=== PATIENT | female | born 1980 | race Caucasian/White ===

== ENCOUNTER 2019-08-01 15:23 | Emergency (ER) | payer MEDICARE, OTHER ==
[2019-08-01 15:30] VITALS: RESP 18
--- NOTE | 2019-08-01 16:03 | ED ---
Female Urogenital HPI - General Chief complaint: Vaginal Bleeding Stated complaint: 7 WEEKS AND SPOTTING Time Seen by Provider: 08/01/19 15:31 Source: patient Mode of arrival: ambulatory Limitations: no limitations - History of Present Illness Initial comments: Patient is a 39-year-old female presenting to the emergency Department with complaints of vaginal spotting and lower abdominal cramping 2 days. Patient is 7 weeks . Patient is a . Patient has yet to see her OB. Patient states the spotting was minimal yesterday but then has increased and she is also noticing small clots. Patient is having small amount of lower abdominal cramping. Patient denies nausea, vomiting, fever, chills. Patient has no other complaints at this time. Upon arrival to ER, vital signs stable. Last Menstrual Period: 05/30/19 - Related Data Home Medications Medication Instructions Recorded Confirmed ARIPiprazole [Abilify] 1 tab PO DAILY 04/29/16 04/29/16 DULoxetine HCL [Cymbalta] 1 tab PO DAILY 04/29/16 04/29/16 Previous Rx's Medication Instructions Recorded Ibuprofen [Motrin] 800 mg PO Q6HR PRN #20 tab 04/29/16 Allergies Allergy/AdvReac Type Severity Reaction Status Date / Time No Known Allergies Allergy Verified 08/01/19 15:30 Review of Systems ROS Statement: Those systems with pertinent positive or pertinent negative responses have been documented in the HPI. ROS Other: All systems not noted in ROS Statement are negative. Past Medical History Past Medical History: No Reported History History of Any Multi-Drug Resistant Organisms: None Reported Past Surgical History: Cholecystectomy Additional Past Surgical History / Comment(s): gastric sleeve surgery Past Psychological History: Depression Smoking Status: Current every day smoker Past Alcohol Use History: None Reported Past Drug Use History: Marijuana General Exam - General Exam Comments Initial Comments: GENERAL: Well-appearing, well-nourished and in no acute distress. HEAD: Atraumatic, normocephalic. EYES: Pupils equal round and reactive to light, extraocular movements intact, sclera anicteric, conjunctiva are normal. ENT: TMs normal, nares patent, oropharynx clear without exudates. Moist mucous membranes. NECK: Normal range of motion, supple without lymphadenopathy or JVD. LUNGS: Breath sounds clear to auscultation bilaterally and equal. No wheezes rales or rhonchi. HEART: Regular rate and rhythm without murmurs, rubs or gallops. ABDOMEN: Soft, nontender, normoactive bowel sounds. No guarding, no rebound. No masses appreciated. : Deferred, declined at this time. EXTREMITIES: Normal range of motion, no pitting or edema. No clubbing or cyanosis. NEUROLOGICAL: Cranial nerves II through XII grossly intact. Normal speech, normal gait. PSYCH: Normal mood, normal affect. SKIN: Warm, Dry, normal turgor, no rashes or lesions noted. Limitations: no limitations Course Vital Signs 08/01/19 08/01/19 15:26 17:55 Temperature 97.9 F 97.6 F Pulse Rate 90 77 Respiratory 18 18 Rate Blood Pressure 109/70 112/65 O2 Sat by Pulse 98 98 Oximetry Medical Decision Making - Medical Decision Making Patient is a 39-year-old female presenting with vaginal spotting and mild lower abdominal cramping since yesterday. Patient states she also notices a few small clots in her blood. Upon arrival to ER, vital signs are stable. Patient's exam is unremarkable. Patient declined vaginal exam at this time. CBC shows white count of 12, rest of CBC is normal. CMP is normal hCG Quant is 3200. UA shows no signs of infection. Ultrasound shows a 6mm intrauterine fetus without movement or cardiac activity consistent with demise at approximately 6 weeks 3 days gestation. These findings were discussed with the patient. It was discussed with patient that she may experience an increase in abdominal cramping and vaginal discharge. Patient is stable for discharge at this time. Patient was given [facility]ER follow-up as needed. Return parameters were discussed with the patient she verbalized understanding. Case discussed with Dr. Smith. - Lab Data Result diagrams: 08/01/19 16:06 08/01/19 16:06 Lab Results 08/01/19 08/01/19 08/01/19 Range/Units 16:06 16:06 16:06 WBC 12.0 H (3.8-10.6) k/uL RBC 4.15 (3.80-5.40) m/uL Hgb 13.3 (11.4-16.0) gm/dL Hct 38.7 (34.0-46.0) % MCV 93.1 (80.0-100.0) fL MCH 32.0 (25.0-35.0) pg MCHC 34.4 (31.0-37.0) g/dL RDW 12.9 (11.5-15.5) % Plt Count 249 (150-450) k/uL Neutrophils % 62 % Lymphocytes % 30 % Monocytes % 4 % Eosinophils % 2 % Basophils % 1 % Neutrophils # 7.4 (1.3-7.7) k/uL Lymphocytes # 3.6 (1.0-4.8) k/uL Monocytes # 0.5 (0-1.0) k/uL Eosinophils # 0.3 (0-0.7) k/uL Basophils # 0.1 (0-0.2) k/uL Sodium 140 (137-145) mmol/L Potassium 3.7 (3.5-5.1) mmol/L Chloride 108 H (98-107) mmol/L Carbon Dioxide 23 (22-30) mmol/L Anion Gap 9 mmol/L BUN 13 (7-17) mg/dL Creatinine 0.61 (0.52-1.04) mg/dL Est GFR (CKD-EPI)AfAm >90 (>60 ml/min/1.73 sqM) Est GFR (CKD-EPI)NonAf >90 (>60 ml/min/1.73 sqM) Glucose 74 (74-99) mg/dL Calcium 9.1 (8.4-10.2) mg/dL Total Bilirubin 0.3 (0.2-1.3) mg/dL AST 20 (14-36) U/L ALT 14 (9-52) U/L Alkaline Phosphatase 60 (38-126) U/L Total Protein 6.8 (6.3-8.2) g/dL Albumin 4.0 (3.5-5.0) g/dL HCG, Quant 3289.9 mIU/mL Urine Color Urine Appearance (Clear) Urine pH (5.0-8.0) Ur Specific [place] (1.001-1.035) Urine Protein (Negative) Urine Glucose (UA) (Negative) Urine Ketones (Negative) Urine Blood (Negative) Urine Nitrite (Negative) Urine Bilirubin (Negative) Urine Urobilinogen (<2.0) mg/dL Ur Leukocyte Esterase (Negative) Urine RBC (0-5) /hpf Urine WBC (0-5) /hpf Ur Squamous Epith Cells (0-4) /hpf Urine Mucus (None) /hpf Blood Type AB Positive Blood Type Recheck No Previous Record Bld Type Recheck Status [facility] ONLY 08/01/19 Range/Units 16:06 WBC (3.8-10.6) k/uL RBC (3.80-5.40) m/uL Hgb (11.4-16.0) gm/dL Hct (34.0-46.0) % MCV (80.0-100.0) fL MCH (25.0-35.0) pg MCHC (31.0-37.0) g/dL RDW (11.5-15.5) % Plt Count (150-450) k/uL Neutrophils % % Lymphocytes % % Monocytes % % Eosinophils % % Basophils % % Neutrophils # (1.3-7.7) k/uL Lymphocytes # (1.0-4.8) k/uL Monocytes # (0-1.0) k/uL Eosinophils # (0-0.7) k/uL Basophils # (0-0.2) k/uL Sodium (137-145) mmol/L Potassium (3.5-5.1) mmol/L Chloride (98-107) mmol/L Carbon Dioxide (22-30) mmol/L Anion Gap mmol/L BUN (7-17) mg/dL Creatinine (0.52-1.04) mg/dL Est GFR (CKD-EPI)AfAm (>60 ml/min/1.73 sqM) Est GFR (CKD-EPI)NonAf (>60 ml/min/1.73 sqM) Glucose (74-99) mg/dL Calcium (8.4-10.2) mg/dL Total Bilirubin (0.2-1.3) mg/dL AST (14-36) U/L ALT (9-52) U/L Alkaline Phosphatase (38-126) U/L Total Protein (6.3-8.2) g/dL Albumin (3.5-5.0) g/dL HCG, Quant mIU/mL Urine Color Yellow Urine Appearance Clear (Clear) Urine pH 6.0 (5.0-8.0) Ur Specific [place] 1.030 (1.001-1.035) Urine Protein Trace H (Negative) Urine Glucose (UA) Negative (Negative) Urine Ketones Negative (Negative) Urine Blood Small H (Negative) Urine Nitrite Negative (Negative) Urine Bilirubin Negative (Negative) Urine Urobilinogen 2.0 (<2.0) mg/dL Ur Leukocyte Esterase Negative (Negative) Urine RBC 3 (0-5) /hpf Urine WBC 1 (0-5) /hpf Ur Squamous Epith Cells 4 (0-4) /hpf Urine Mucus Rare H (None) /hpf Blood Type Blood Type Recheck Bld Type Recheck Status Disposition Clinical Impression: Incomplete miscarriage, Vaginal bleeding Disposition: HOME SELF-CARE Condition: Stable Instructions (If sedation given, give patient instructions): Miscarriage (ED) Additional Instructions: Please return to the Emergency Department if symptoms worsen or any other concerns. Follow-up with [facility] as needed. Is patient prescribed a controlled substance at d/c from ED?: No Referrals: Zari Yarbrough MD [Primary Care Provider] - 1-2 days Laurence Mo DO [Doctor of Osteopathic Medicine] - 1-2 days
[2019-08-01 16:32] LABS: Basophils # (A) 0.1 k/uL (0-0.2); Basophils % (A) 1 %; Eosinophils # (A) 0.3 k/uL (0-0.7); Eosinophils % (A) 2 %; HCT 38.7 % (34.0-46.0); HGB 13.3 gm/dL (11.4-16.0); Lymphocytes # (A) 3.6 k/uL (1.0-4.8); Lymphocytes % (A) 30 %; MCHC 34.4 g/dL (31.0-37.0); MCV 93.1 fL (80.0-100.0); Monocytes # (A) 0.5 k/uL (0-1.0); Monocytes % (A) 4 %; Neutrophils # (A) 7.4 k/uL (1.3-7.7); Neutrophils % (A) 62 %; Platelet Count 249 k/uL (150-450); RBC 4.15 m/uL (3.80-5.40); RDW 12.9 % (11.5-15.5)
[2019-08-01 16:49] LABS: ALT 14 U/L (9-52); AST 20 U/L (14-36); African American GFR (CKD) >90 (>60 ml/min/1.73 sqM); Alkaline Phosphatase 60 U/L (38-126); Anion Gap 9 mmol/L; Appearance,Urine Clear (Clear); Bilirubin,Urine Negative (Negative); Blood Urea Nitrogen 13 mg/dL (7-17); Blood,Urine Small (Negative); Calcium 9.1 mg/dL (8.4-10.2); Carbon Dioxide 23 mmol/L (22-30); Chloride 108 mmol/L (98-107); Color,Urine Yellow; Glucose 74 mg/dL (74-99); Glucose,Urine (UA) Negative (Negative); Ketones,Urine Negative (Negative); Leukocyte Esterase,Urine Negative (Negative); Mucus,Urine Rare /hpf; Nitrite,Urine Negative (Negative); Potassium 3.7 mmol/L (3.5-5.1); Protein,Urine Trace (Negative); RBC,Urine 3 /hpf (0-5); Sodium 140 mmol/L (137-145); Squamous Epithelial Cell,Urine 4 /hpf (0-4); Total Bilirubin 0.3 mg/dL (0.2-1.3); Total Protein 6.8 g/dL (6.3-8.2)
[2019-08-01 17:05] LABS: HCG,Quantitative Serum 3289.9 mIU/mL
--- NOTE | 2019-08-01 17:16 | US ---
EXAMINATION TYPE: Transabdominal DATE OF EXAM: 08/01/2019 5:08 PM COMPARISON: NONE CLINICAL HISTORY: Pain. Pt states vaginal bleeding with small clots EXAM PERFORMED: TA and TV EXAM MEASUREMENTS: GESTATIONAL AGE / DATING Physician Established: Not yet established Dates by LMP: (9 weeks/0 days) EDC: 03/05/2020 Dates by First Scan: No prior Dates by Current Scan for: (6 weeks/2 days) EDC: 03/24/2020 MATERNAL ANATOMY Uterus: 8.5 x 5.2 x 6.4 cm Right Ovary: 2.6 x 1.7 x 2.5 cm Left Ovary: 3.5 x 2.3 x 1.9 cm Post CDS / Adnexa: wnl Presence of free fluid: No Presence of corpus luteal cyst: Left Ovary= 2.1 x 1.8 1.7 cm Presence of subchorionic bleed: No GESTATION / SURVEY CRL: 0.6 cm (6 weeks/2 days) MSD: Debris within gestational sac Yolk Sac (normal less than 6mm): 5mm IUP: Demise Probable demise, cardiac activity not detected with color or pulsed doppler/ debris within ge stational sac IMPRESSION: 6 mm intrauterine fetus without movement or cardiac activity consistent with demise at approxim ately 6 weeks 3 days gestation.
[2019-08-01 18:02] VITALS: BP 112/65; PULSE 77; TEMP 97.6
== END 2019-08-01 17:55 | disposition home or self-care (01) ==
LOC: EC 15:23
DX: O03.4 Incomplete spontaneous abortion without complication (principal); O99.341 Other mental disorders complicating pregnancy, first trimester; F32.9 Major depressive disorder, single episode, unspecified; O99.331 Smoking (tobacco) complicating pregnancy, first trimester; F17.200 Nicotine dependence, unspecified, uncomplicated; Z79.899 Other long term (current) drug therapy; Z90.49 Acquired absence of other specified parts of digestive tract; Z98.84 Bariatric surgery status; Z3A.01 Less than 8 weeks gestation of pregnancy; Z53.20 Procedure and treatment not carried out because of patient's decision for unspecified reasons
CPT/HCPCS: 36415; 76801; 76817; 80053; 81001; 84702; 85025; 86900; 86901; 99284

== ENCOUNTER → 2019-10-04 | Outpatient (CLI) | payer MEDICARE, OTHER ==
--- NOTE | 2019-10-05 07:23 | CT ---
EXAMINATION TYPE: CT facial bones wo con DATE OF EXAM: 10/04/2019 COMPARISON: None HISTORY: LUMP TO RIGHT SIDE NASAL AREA X2 MONTHS CT DLP: 575.3 mGycm Automated exposure control for dose reduction was used. TECHNIQUE: CT scan of the sinuses is performed without contrast, axial images are obtained, coronal r eformatted images are also reviewed. FINDINGS: There is no CT correlate for the patient's palpable right nasal abnormality. No discrete solid or cys tic masses seen given the limitation of lack of intravenous contrast. Orbits are symmetric and lenses are in place. Extraocular muscles are unremarkable. Circumferential mild mucosal thickening of the i nferior left maxillary sinus. The remaining paranasal sinuses are well aerated as are the visualized portions of the mastoid air cells. Small lisa bullosa is seen on the left. There is a very mild rig htward nasal septal deviation of the anterior portion of the nasal septum. Ostiomeatal complexes are slightly narrowed by mucosal thickening but patent. Visualized portions of brain display mild frontal atrophy but are suboptimally viewed given htzyl-hy-nsyc and technique. IMPRESSION: 1. No CT correlate to the patient's right nasal palpable abnormality. 2. Mild left maxillary mucosal thickening. 3. Slight rightward nasal deviation of the anterior aspect of the nasal septum and small nonobstructi ng left lisa bullosa. 4. Minimal narrowing without obstruction of the ostiomeatal complexes.
== END | disposition home or self-care (01) ==
LOC: RADCTMAIN 16:46
PROVIDERS: ATTEND Family Medicine
DX: J34.89 Other specified disorders of nose and nasal sinuses (principal); J34.2 Deviated nasal septum
CPT/HCPCS: 70486

== ENCOUNTER 2021-05-16 13:36 | Emergency (ER) | payer MEDICARE, OTHER ==
[2021-05-16 14:16] VITALS: TEMP 98
[2021-05-16] MEDS ORDERED: LABETALOL 5 MG/ML VIAL MDV IVP STA (14:43)
[2021-05-16 14:50] LABS: Appearance,Urine Clear (Clear); Bilirubin,Urine Negative (Negative); Blood,Urine Negative (Negative); Color,Urine Yellow; Glucose,Urine (UA) Negative (Negative); Ketones,Urine 1+ (Negative); Leukocyte Esterase,Urine Negative (Negative); Nitrite,Urine Negative (Negative); PH, Urine 6.5 (5.0-8.0); Protein,Urine Trace (Negative); Specific Gravity,Urine 1.017 (1.001-1.035); Urobilinogen,Urine <2.0 mg/dL (<2.0)
[2021-05-16 14:51] LABS: Basophils # (A) 0.1 k/uL (0-0.2); Basophils % (A) 0 %; Eosinophils # (A) 0.4 k/uL (0-0.7); Eosinophils % (A) 3 %; HCT 37.7 % (34.0-46.0); HGB 12.2 gm/dL (11.4-16.0); Lymphocytes # (A) 2.9 k/uL (1.0-4.8); Lymphocytes % (A) 22 %; MCH 28.8 pg (25.0-35.0); MCHC 32.5 g/dL (31.0-37.0); MCV 88.7 fL (80.0-100.0); Mean Platelet Volume 7.4; Monocytes # (A) 0.4 k/uL (0-1.0); Monocytes % (A) 3 %; Neutrophils # (A) 9.1 k/uL (1.3-7.7); Neutrophils % (A) 70 %; Platelet Count 355 k/uL (150-450); RBC 4.25 m/uL (3.80-5.40); RDW 14.8 % (11.5-15.5); WBC 13.1 k/uL (3.8-10.6)
[2021-05-16 15:06] VITALS: RESP 20
[2021-05-16 15:12] LABS: ALT 17 U/L (4-34); AST 31 U/L (14-36); African American GFR (CKD) >90 (>60 ml/min/1.73 sqM); Albumin 3.2 g/dL (3.5-5.0); Alkaline Phosphatase 163 U/L (38-126); Anion Gap 7 mmol/L; Blood Urea Nitrogen 8 mg/dL (7-17); Calcium 8.9 mg/dL (8.4-10.2); Carbon Dioxide 25 mmol/L (22-30); Chloride 105 mmol/L (98-107); Glucose 87 mg/dL (74-99); LDH 548 U/L (313-618); Magnesium 1.7 mg/dL (1.6-2.3); Non-African American GFR(CKD) >90 (>60 ml/min/1.73 sqM); Potassium 3.9 mmol/L (3.5-5.1); Sodium 137 mmol/L (137-145); Total Bilirubin 0.4 mg/dL (0.2-1.3); Total Protein 6.3 g/dL (6.3-8.2); Uric Acid 5.1 mg/dL (3.7-7.4)
[2021-05-16] MEDS ORDERED: ACETAMINOPHEN TAB 500 MG TAB PO STA (15:16)
--- NOTE | 2021-05-16 15:27 | ED ---
General Adult HPI - General Chief complaint: Extremity Problem,Nontraumatic Stated complaint: post Csection leg swelling Time Seen by Provider: 05/16/21 14:10 Source: patient, RN notes reviewed, old records reviewed Mode of arrival: ambulatory Limitations: no limitations - History of Present Illness Initial comments: This is a 40-year-old female presents emergency Department 4 days . Patient had a at [facility]. Patient states yesterday she started noticing significant swelling to both of her legs as well as a headache. Patient states she was on labetalol during her but after green party C she has not taken it because she thought she didn't need anymore. Patient denies any visual disturbance. Patient denies any numbness weakness. Patient denies any chest pain or difficulty breathing shortness of breath per patient denies any abdominal pain. Patient denies any fever chills. - Related Data Home Medications Medication Instructions Recorded Confirmed ARIPiprazole [Abilify] 1 tab PO DAILY 04/29/16 04/29/16 DULoxetine HCL [Cymbalta] 1 tab PO DAILY 04/29/16 04/29/16 Previous Rx's Medication Instructions Recorded Ibuprofen [Motrin] 800 mg PO Q6HR PRN #20 tab 04/29/16 Labetalol [Trandate] 100 mg PO BID #30 tablet 05/16/21 Allergies Allergy/AdvReac Type Severity Reaction Status Date / Time No Known Allergies Allergy Verified 05/16/21 16:19 Review of Systems ROS Statement: Those systems with pertinent positive or pertinent negative responses have been documented in the HPI. ROS Other: All systems not noted in ROS Statement are negative. Past Medical History Past Medical History: Hypertension History of Any Multi-Drug Resistant Organisms: None Reported Past Surgical History: Bariatric Surgery, Section, Cholecystectomy Additional Past Surgical History / Comment(s): gastric sleeve surgery Past Psychological History: Depression Smoking Status: Current every day smoker Past Alcohol Use History: None Reported Past Drug Use History: Marijuana General Exam - General Exam Comments Initial Comments: GENERAL: Patient is well-developed and well-nourished. Patient is nontoxic and well- hydrated and is in mild distress. ENT: Neck is soft and supple. No significant lymphadenopathy is noted. Oropharynx is clear. Moist mucous membranes. Neck has full range of motion without eliciting any pain. EYES: The sclera were anicteric and conjunctiva were pink and moist. Extraocular movements were intact and pupils were equal round and reactive to light. Eyelids were unremarkable. PULMONARY: Unlabored respirations. Good breath sounds bilaterally. No audible rales rhonchi or wheezing was noted. CARDIOVASCULAR: There is a regular rate and rhythm without any murmurs gallops or rubs. ABDOMEN: Soft and nontender with normal bowel sounds. SKIN: Skin is clear with no lesions or rashes and otherwise unremarkable. NEUROLOGIC: Patient is alert and oriented x3. Cranial nerves II through XII are grossly intact. Motor and sensory are also intact. Normal speech, volume and content. Symmetrical smile. MUSCULOSKELETAL: Normal extremities with adequate strength and full range of motion. 2+ edema bilaterally LYMPHATICS: No significant lymphadenopathy is noted PSYCHIATRIC: Normal psychiatric evaluation. Limitations: no limitations Course Vital Signs 05/16/21 05/16/21 05/16/21 14:09 15:05 16:00 Temperature 98.0 F Pulse Rate 104 H 87 89 Respiratory 22 20 20 Rate Blood Pressure 158/94 127/89 138/91 O2 Sat by Pulse 97 95 95 Oximetry Medical Decision Making - Medical Decision Making EKG shows sinus tachycardia 105 bpm TN interval is 134 QRS is 84 Q-T intervals 324 QTC is 428. Patient's EKG shows no ST segment elevation or depression. I spoke with Dr. Garzon about this patient before and after labetalol was given she was comfortable at this point time of discharge patient home on labetalol. I spoke with Dr. Fairbanks and she did not want to give any input because she did not have privileges at this hospital even though this was her patient. - Lab Data Result diagrams: 05/16/21 14:31 05/16/21 14:31 Lab Results 05/16/21 05/16/21 05/16/21 Range/Units 14:31 14:31 14:31 WBC 13.1 H (3.8-10.6) k/uL RBC 4.25 (3.80-5.40) m/uL Hgb 12.2 (11.4-16.0) gm/dL Hct 37.7 (34.0-46.0) % MCV 88.7 (80.0-100.0) fL MCH 28.8 (25.0-35.0) pg MCHC 32.5 (31.0-37.0) g/dL RDW 14.8 (11.5-15.5) % Plt Count 355 (150-450) k/uL MPV 7.4 Neutrophils % 70 % Lymphocytes % 22 % Monocytes % 3 % Eosinophils % 3 % Basophils % 0 % Neutrophils # 9.1 H (1.3-7.7) k/uL Lymphocytes # 2.9 (1.0-4.8) k/uL Monocytes # 0.4 (0-1.0) k/uL Eosinophils # 0.4 (0-0.7) k/uL Basophils # 0.1 (0-0.2) k/uL Sodium 137 (137-145) mmol/L Potassium 3.9 (3.5-5.1) mmol/L Chloride 105 (98-107) mmol/L Carbon Dioxide 25 (22-30) mmol/L Anion Gap 7 mmol/L BUN 8 (7-17) mg/dL Creatinine 0.58 (0.52-1.04) mg/dL Est GFR (CKD-EPI)AfAm >90 (>60 ml/min/1.73 sqM) Est GFR (CKD-EPI)NonAf >90 (>60 ml/min/1.73 sqM) Glucose 87 (74-99) mg/dL Uric Acid 5.1 (3.7-7.4) mg/dL Calcium 8.9 (8.4-10.2) mg/dL Magnesium 1.7 (1.6-2.3) mg/dL Total Bilirubin 0.4 (0.2-1.3) mg/dL AST 31 (14-36) U/L ALT 17 (4-34) U/L Alkaline Phosphatase 163 H (38-126) U/L Lactate Dehydrogenase 548 (313-618) U/L Total Protein 6.3 (6.3-8.2) g/dL Albumin 3.2 L (3.5-5.0) g/dL Urine Color Yellow Urine Appearance Clear (Clear) Urine pH 6.5 (5.0-8.0) Ur Specific [place] 1.017 (1.001-1.035) Urine Protein Trace H (Negative) Urine Glucose (UA) Negative (Negative) Urine Ketones 1+ H (Negative) Urine Blood Negative (Negative) Urine Nitrite Negative (Negative) Urine Bilirubin Negative (Negative) Urine Urobilinogen <2.0 (<2.0) mg/dL Ur Leukocyte Esterase Negative (Negative) Disposition Clinical Impression: Gestational hypertension Disposition: HOME SELF-CARE Condition: Good Instructions (If sedation given, give patient instructions): Preeclampsia During (ED) Prescriptions: Labetalol [Trandate] 100 mg PO BID #30 tablet Is patient prescribed a controlled substance at d/c from ED?: No Referrals: Yadira Fairbanks MD [STAFF PHYSICIAN] - 1-2 days Time of Disposition: 16:37
[2021-05-16 16:16] VITALS: BP 138/91; PULSE 89
== END 2021-05-16 16:42 | disposition home or self-care (01) ==
LOC: EC 13:36
DX: O13.5 Gestational [pregnancy-induced] hypertension without significant proteinuria, complicating the puerperium (principal); O99.335 Smoking (tobacco) complicating the puerperium; F17.200 Nicotine dependence, unspecified, uncomplicated
CPT/HCPCS: 36415; 80053; 81003; 83615; 83735; 84550; 85025; 93005; 96374; 99284

== ENCOUNTER 2022-03-07 17:39 | Emergency (ER) | payer MEDICARE, OTHER ==
[2022-03-07 17:57] VITALS: TEMP 98.5
[2022-03-07] MEDS ORDERED: SODIUM CHLORIDE 0.9% 1,000 ML IV STA (18:24)
[2022-03-07] MEDS ORDERED: MORPHINE SULFATE 4 MG/ML SYRINGE IV STA (18:24)
[2022-03-07] MEDS ORDERED: ASPIRIN 81 MG PO STA (18:24)
[2022-03-07] MEDS ORDERED: KETOROLAC 15 MG/ML 1 ML VIAL IVP STA (18:24)
[2022-03-07] MEDS ORDERED: methylPREDNISolone SOD SUCCI 125 MG/2 ML VIAL IV STA (18:32)
[2022-03-07] MEDS ORDERED: IPRATROPIUM-ALBUTEROL 3 ML NEB INHALATION STA (18:32)
--- NOTE | 2022-03-07 18:37 | ED ---
General Adult HPI - General Chief complaint: Chest Pain Stated complaint: Chest pain Time Seen by Provider: 03/07/22 18:08 Source: patient, RN notes reviewed, old records reviewed Mode of arrival: wheelchair Limitations: no limitations - History of Present Illness Initial comments: Patient is a 41-year-old female with past medical history remarkable for tobacco use, hypertension and presents emergency Department complaining of a three-day history of atypical chest pain. Discussed the pain as a belt like an distribution starting near her sternum and radiating around 1 of her mid ribs to the right side. Denies any trauma. States it is pleuritic. Describes it as sharp and achy. Denies any fevers but does endorse a mild cough. Denies any nausea, vomiting, diarrhea. His no other acute complaints at this time. Has no known sick contacts. SHe was not vaccinated for Covid. No known history of blood clots. Denies any lower extremity edema. Denies any recent long distance travel. States she is always tachycardic, and the low 100s from 100-110. Denies any recent increase in amount of caffeinated beverage use. - Related Data Home Medications Medication Instructions Recorded Confirmed No Known Home Medications 03/07/22 03/07/22 Allergies Allergy/AdvReac Type Severity Reaction Status Date / Time No Known Allergies Allergy Verified 03/07/22 17:57 Review of Systems ROS Statement: Those systems with pertinent positive or pertinent negative responses have been documented in the HPI. Review of Systems: CONST: Denies fever EYES: Denies blurry vision ENT: Denies nasal congestion C/V: Endorses chest pain RESP: Denies shortness of breath GI: Denies abdominal pain : Denies dysuria SKIN: Denies rash. MSK: Denies joint pain. NEURO: Denies headache ROS Other: All systems not noted in ROS Statement are negative. Past Medical History Past Medical History: Hypertension History of Any Multi-Drug Resistant Organisms: None Reported Past Surgical History: Bariatric Surgery, Section, Cholecystectomy Additional Past Surgical History / Comment(s): gastric sleeve surgery Past Psychological History: Depression Smoking Status: Current every day smoker Past Alcohol Use History: None Reported Past Drug Use History: Marijuana General Exam - General Exam Comments Initial Comments: General: Appears in no acute distress. HEAD: Normal with no signs of head trauma. EYES: PERRLA, EOMI, conjunctiva normal, no discharge. ENT: Hearing grossly intact, normal oropharynx. RESPIRATORY: No hypoxia. No increased work of breathing. Bilateral end expiratory wheezing that is mild. C/V: Tachycardic with a regular rhythm. S1 and S2 auscultated, no edema, peripheral pulses 2+ and intact throughout. Chest pain appears to be reproducible on palpation as well as with movement of her trunk. ABD: Abd is soft, nontender, nondistended. No guarding. No rebound tenderness. No peritoneal signs. EXT: Normal range of motion, no obvious deformity SKIN: No rashes or lesions observed on exposed skin. NEURO: Alert and oriented 4. Limitations: no limitations Course Vital Signs 03/07/22 03/07/22 03/07/22 17:54 19:15 19:25 Temperature 98.5 F Pulse Rate 116 H 86 90 Respiratory 20 Rate Blood Pressure 131/80 O2 Sat by Pulse 100 Oximetry 03/07/22 03/07/22 19:26 21:26 Temperature Pulse Rate 84 74 Respiratory 18 18 Rate Blood Pressure 136/91 141/87 O2 Sat by Pulse 100 100 Oximetry Medical Decision Making - Medical Decision Making Based on the patient's presentation and physical exam, I'm concerned for acute cardiopulmonary etiology for her current symptoms for cannot rule out infectious etiology. Therefore we will obtain cardiac labs, d-dimer, as well as flu and Covid swab. She appears to be having a mild COPD exacerbation as well and will be given steroids and a breathing treatment. Patient was in agreement this plan. She is having atypical chest pain. She'll receive an aspirin. EKG showed no signs of acute ischemia.Patient's chest x-ray shows no acute cardiopulmonary process. Laboratory studies are remarkable for a rate slightly elevated leukocytosis of 14.8 which is likely reactive secondary to nausea and vomiting. D-dimer is elevated to 1.75. Patient also has a mildly elevated total bilirubin of 3.5, as well as elevated LFTs and alk phos. Troponin is indeterminate. Remainder the labs are unremarkable. Covid influenza negative. I did discuss with the patient results of her labs. She has a history of cholecystectomy, and declines any upper abdominal pain. On reevaluation at this time, her chest pain is completely resolved. She is been tolerating oral intake. I did discuss with her that I would like to obtain collateral ultrasound to ensure there is no retained stone, despite her having her gallbladder removed multiple years ago. Chest is a history gastric bypass surgery. She denies having any abdominal pain at this time. We will obtain a CT angiogram of the chest to evaluate for possible pulmonary embolism as well. She was in agreement this plan. CT PE showed no signs of PE. Right upper quadrant ultrasound revealed at a cellular disease, possible hepatic steatosis but no other acute findings. On reevaluation, patient remains stable. Remains asymptomatic. Vital signs are within normal limits. Did discuss with her at length the results of her labs. Could be a reactive process or possible chronic hepatic disease. We do not have gastroenterology here in the hospital for at least 2 weeks. She would require evaluation by them or by her home surgeon. She would like to go home. She is asymptomatic. I believe this is reasonable, she has been dealing with these symptoms for the last 2 days but she is feeling improved at this point. I did advise her that she should follow-up with her home surgeon, and she was in agreement with this plan. She understands that we do not have gastroenterology here for evaluation and that she should follow up with her surgeon on outpatient basis. She would like to go home. Patient will be discharged home at this time. I instructed the patient to follow up with their PCP in the next 3 days. I explained that the patient should return to the emergency department if they experience any worsening symptoms. Strict return precautions were discussed with the patient. The patient expressed understanding of these instructions. I answered all questions that the patient had. The patient was discharged home in good condition with their prescriptions and follow up information. - Lab Data Result diagrams: 03/07/22 18:34 03/07/22 18:34 Lab Results 03/07/22 03/07/22 03/07/22 Range/Units 18:34 18:34 18:34 WBC 14.8 H (3.8-10.6) k/uL RBC 5.02 (3.80-5.40) m/uL Hgb 14.8 (11.4-16.0) gm/dL Hct 44.8 (34.0-46.0) % MCV 89.2 (80.0-100.0) fL MCH 29.6 (25.0-35.0) pg MCHC 33.2 (31.0-37.0) g/dL RDW 14.6 (11.5-15.5) % Plt Count 307 (150-450) k/uL MPV 7.6 Neutrophils % 72 % Lymphocytes % 17 % Monocytes % 5 % Eosinophils % 5 % Basophils % 1 % Neutrophils # 10.7 H (1.3-7.7) k/uL Lymphocytes # 2.6 (1.0-4.8) k/uL Monocytes # 0.7 (0-1.0) k/uL Eosinophils # 0.7 (0-0.7) k/uL Basophils # 0.1 (0-0.2) k/uL PT 9.7 (9.0-12.0) sec INR 0.9 (<1.2) APTT 24.3 (22.0-30.0) sec D-Dimer 1.75 H (<0.60) mg/L FEU Sodium 138 (137-145) mmol/L Potassium 3.9 (3.5-5.1) mmol/L Chloride 106 (98-107) mmol/L Carbon Dioxide 24 (22-30) mmol/L Anion Gap 8 mmol/L BUN 13 (7-17) mg/dL Creatinine 0.64 (0.52-1.04) mg/dL Est GFR (CKD-EPI)AfAm >90 (>60 ml/min/1.73 sqM) Est GFR (CKD-EPI)NonAf >90 (>60 ml/min/1.73 sqM) Glucose 134 H (74-99) mg/dL Calcium 9.1 (8.4-10.2) mg/dL Magnesium 2.0 (1.6-2.3) mg/dL Total Bilirubin 3.5 H (0.2-1.3) mg/dL AST 467 H (14-36) U/L ALT 687 H (4-34) U/L Alkaline Phosphatase 466 H (38-126) U/L Troponin I (0.000-0.034) ng/mL Total Protein 7.5 (6.3-8.2) g/dL Albumin 4.1 (3.5-5.0) g/dL Coronavirus (PCR) (Not Detectd) Influenza Type A RNA (Not Detectd) Influenza Type B (PCR) (Not Detectd) 03/07/22 03/07/22 03/07/22 Range/Units 18:34 18:34 18:34 WBC (3.8-10.6) k/uL RBC (3.80-5.40) m/uL Hgb (11.4-16.0) gm/dL Hct (34.0-46.0) % MCV (80.0-100.0) fL MCH (25.0-35.0) pg MCHC (31.0-37.0) g/dL RDW (11.5-15.5) % Plt Count (150-450) k/uL MPV Neutrophils % % Lymphocytes % % Monocytes % % Eosinophils % % Basophils % % Neutrophils # (1.3-7.7) k/uL Lymphocytes # (1.0-4.8) k/uL Monocytes # (0-1.0) k/uL Eosinophils # (0-0.7) k/uL Basophils # (0-0.2) k/uL PT (9.0-12.0) sec INR (<1.2) APTT (22.0-30.0) sec D-Dimer (<0.60) mg/L FEU Sodium (137-145) mmol/L Potassium (3.5-5.1) mmol/L Chloride (98-107) mmol/L Carbon Dioxide (22-30) mmol/L Anion Gap mmol/L BUN (7-17) mg/dL Creatinine (0.52-1.04) mg/dL Est GFR (CKD-EPI)AfAm (>60 ml/min/1.73 sqM) Est GFR (CKD-EPI)NonAf (>60 ml/min/1.73 sqM) Glucose (74-99) mg/dL Calcium (8.4-10.2) mg/dL Magnesium (1.6-2.3) mg/dL Total Bilirubin (0.2-1.3) mg/dL AST (14-36) U/L ALT (4-34) U/L Alkaline Phosphatase (38-126) U/L Troponin I 0.019 (0.000-0.034) ng/mL Total Protein (6.3-8.2) g/dL Albumin (3.5-5.0) g/dL Coronavirus (PCR) Not Detected (Not Detectd) Influenza Type A RNA Not Detected (Not Detectd) Influenza Type B (PCR) Not Detected (Not Detectd) - EKG Data -: EKG Interpreted by Me EKG Comments: 12-lead Electrocardiogram Interpretation Note EKG was reviewed and interpreted by myself. 12-lead ECG performed at 1807 is i nterpreted by me as revealing normal sinus rhythm at a rate of 96 beats per minute. [place] is normal. NC interval is 143 ms, QRS duration is 87 ms, QTc is 381 ms.. There were no ST or T wave abnormalities to suggest myocardial ischemia or injury. R wave progression across the precordium was satisfactory. By my interpretation this EKG is non-diagnostic for acute ischemia. Disposition Clinical Impression: Musculoskeletal pain, Atypical chest pain, Hepatic steatosis Disposition: HOME SELF-CARE Condition: Good Instructions (If sedation given, give patient instructions): Chest Pain (ED) Is patient prescribed a controlled substance at d/c from ED?: No Referrals: Zari Yarbrough MD [Primary Care Provider] - 1-2 days
[2022-03-07 19:01] LABS: ALT 687 U/L (4-34); AST 467 U/L (14-36); African American GFR (CKD) >90 (>60 ml/min/1.73 sqM); Albumin 4.1 g/dL (3.5-5.0); Alkaline Phosphatase 466 U/L (38-126); Anion Gap 8 mmol/L; Blood Urea Nitrogen 13 mg/dL (7-17); Calcium 9.1 mg/dL (8.4-10.2); Carbon Dioxide 24 mmol/L (22-30); Chloride 106 mmol/L (98-107); Glucose 134 mg/dL (74-99); Non-African American GFR(CKD) >90 (>60 ml/min/1.73 sqM); Potassium 3.9 mmol/L (3.5-5.1); Sodium 138 mmol/L (137-145); Total Bilirubin 3.5 mg/dL (0.2-1.3); Total Protein 7.5 g/dL (6.3-8.2)
[2022-03-07 19:04] LABS: Basophils # (A) 0.1 k/uL (0-0.2); Basophils % (A) 1 %; Eosinophils # (A) 0.7 k/uL (0-0.7); Eosinophils % (A) 5 %; HCT 44.8 % (34.0-46.0); HGB 14.8 gm/dL (11.4-16.0); Lymphocytes # (A) 2.6 k/uL (1.0-4.8); Lymphocytes % (A) 17 %; MCH 29.6 pg (25.0-35.0); MCHC 33.2 g/dL (31.0-37.0); MCV 89.2 fL (80.0-100.0); Mean Platelet Volume 7.6; Monocytes # (A) 0.7 k/uL (0-1.0); Monocytes % (A) 5 %; Neutrophils # (A) 10.7 k/uL (1.3-7.7); Neutrophils % (A) 72 %; Platelet Count 307 k/uL (150-450); RBC 5.02 m/uL (3.80-5.40); RDW 14.6 % (11.5-15.5); WBC 14.8 k/uL (3.8-10.6)
[2022-03-07 19:06] LABS: INR 0.9 (<1.2); Partial Thromboplastin Time 24.3 sec (22.0-30.0); Prothrombin Time 9.7 sec (9.0-12.0)
[2022-03-07 19:27] VITALS: RESP 18
--- NOTE | 2022-03-07 19:41 | XR ---
EXAMINATION TYPE: XR chest 2V DATE OF EXAM: 03/07/2022 7:03 PM COMPARISON:Chest radiographs from 04/29/2016 TECHNIQUE: XR chest 2V Frontal and lateral views of the chest. CLINICAL INDICATION:Female, 41 years old with history of Chest Pain; FINDINGS: Lungs/Pleura: There is no evidence of pleural effusion, focal consolidation, or pneumothorax. Pulmonary vascularity: Unremarkable. Heart/mediastinum: Cardiomediastinal silhouette is unremarkable. Musculoskeletal: No acute osseous pathology. IMPRESSION: No acute cardiopulmonary disease/process.
--- NOTE | 2022-03-07 20:04 | CT ---
EXAMINATION TYPE: CT chest angio for PE CT DLP: 410.4 mGycm, Automated exposure control for dose reduction was used. DATE OF EXAM: 03/07/2022 7:42 PM COMPARISON: Chest radiograph from same day. CLINICAL INDICATION:Female, 41 years old with history of elevated d-dimer, concern for PE; Elevated d -dimer, SOB TECHNIQUE/CONTRAST: CTA scan of the thorax is performed with IV Contrast, patient injected with 100 mL of Isovue 370, pul monary embolism protocol. MIP images are created and reviewed. FINDINGS: Pulmonary Artery: There is no evidence for a filling defect within the pulmonary vasculature to sugge st acute pulmonary embolism. The pulmonary artery is of normal size. Lungs/Pleura: No evidence of focal consolidation, pleural effusion or pneumothorax. Airway: Large airways are patent. Heart: Within normal limits for size.. Vasculature: No evidence of aortic aneurysm. Mediastinum: No gross evidence of adenopathy. Musculoskeletal: No acute osseous abnormalities. Multilevel disc degeneration changes throughout the spine. Soft Tissues: Unremarkable. Lower neck: No significant findings. Upper Abdomen: Postsurgical changes to the stomach stomach. IMPRESSION: No evidence of pulmonary embolism.
--- NOTE | 2022-03-07 20:49 | US ---
EXAMINATION TYPE: US gallbladder DATE OF EXAM: 03/07/2022 COMPARISON: NONE CLINICAL HISTORY: pain, concern for cholecystitis. Concern for cholecystitis; hx cholecystectomy. Pat ient has epigastric and RUQ pain EXAM MEASUREMENTS: Liver Length: 14.2 cm Gallbladder Wall: Surgically absent CBD: 1.2 cm Right Kidney: 11.2 x 4.6 x 5.1 cm Pancreas: Tail obscured by overlying bowel gas Liver: Increased echotexture. Gallbladder: Surgically absent Evidence for sonographic Jameson's sign: No CBD: Slightly dilated post cholecystectomy Right Kidney: Appears wnl; no hydronephrosis IMPRESSION: 1. No evidence for acute cholecystitis in this patient status post cholecystectomy. 2. Hepatocellular disease most commonly relating to hepatic steatosis.
[2022-03-07 21:26] VITALS: BP 141/87; PULSE 74
== END 2022-03-07 21:29 | disposition home or self-care (01) ==
LOC: EC 17:39
DX: R07.89 Other chest pain (principal); K76.0 Fatty (change of) liver, not elsewhere classified; Z20.822 Contact with and (suspected) exposure to COVID-19; R00.0 Tachycardia, unspecified; I10 Essential (primary) hypertension; F17.200 Nicotine dependence, unspecified, uncomplicated; F12.90 Cannabis use, unspecified, uncomplicated
CPT/HCPCS: 36415; 94640; 93005; 85379; 80053; 83735; 84484; 85025; 85610; 85730; 87502; 87635; 71046; 76705; 71275; 99285; 96374; 96375 ×2; 96361; J2270; J2930; J1885